=== PATIENT | male | born 1990 | race Caucasian/White ===

== ENCOUNTER 2021-09-28 03:59 | Emergency (ER) | payer OTHER, SELFPAY ==
[2021-09-28 04:06] VITALS: BP 131/78; PULSE 85; RESP 16; TEMP 36.7; O2SAT 96; BMI 27.8
--- NOTE | 2021-09-28 04:11 | ED_ITS ---
HPI - Back Pain/Injury General: Chief Complaint: Back Pain/Injury Stated Complaint: R flank pain Time Seen by Provider: 09/28/21 04:01 Source: patient Mode of arrival: ambulatory Limitations: no limitations History of Present Illness: HPI Narrative: 31-year-old male states that roughly an hour ago he woke up with sudden onset of right flank pain severe in nature. States originally it was a 9 out of 10 had vomiting from the pain he states pain is improved currently is now 5 out of 10. He denies any worsening improving factors. Has had no diarrhea he states he had a kidney stone 7 years ago and this feels similar denies any blood in his urine denies any testicle pain denies any dysuria. Associated symptoms: Deny abdominal pain, chills, fever(s), nausea or vomiting Review of Systems Const: Denies: fever(s), chills, body aches or change in appetite Eyes: Denies: blurry vision or eye discomfort ENMT: Denies: throat pain or dental pain Card: Denies: chest pain Resp: Denies: dyspnea GI: Denies: abdominal pain, nausea, vomiting or diarrhea : Reports: flank pain Musc: Denies: neck pain or back pain Skin/Breast: Denies: rash Neuro: Denies: headache(s) Psych: Denies: depression Roel/Lymph: Denies: easy bruising All/Imm: Denies: urticaria PFSH ED PFSH: Medical History Obesity (BMI 30.0-34.9) Surgical History History of inguinal hernia repair History of knee surgery History of shoulder surgery Social History Smoking and tobacco status: never smoked Alcohol intake: never Physical Exam Const: COMMON NORMALS: no acute distress, patient oriented x3 and healthy appearing HENMT: COMMON NORMALS: normocephalic and atraumatic HEAD & SCALP: normocephalic and atraumatic Eye: COMMON NORMALS: Equal, round and reactive pupils present and EOMs intact bilaterally PUPIL: Yes Equal, round and reactive pupils present Neck/C-Spine: COMMON NORMALS: full ROM and supple Chest: COMMONS NORMALS: normal inspection of the chest and normal palpation of entire chest wall Resp: COMMON NORMALS: normal respiratory effort, No retractions, No use of accessory muscles and clear to auscultation bilaterally AUSCULTATION: clear to auscultation bilaterally Cardio: COMMON NORMALS: regular rate, regular rhythm and No murmurs present (Cardio) RATE: regular rate RHYTHM: regular rhythm GI: COMMON NORMALS: Normal to inspection, nondistended, normoactive bowel sounds present, Soft to palpation, non-tender and no masses PALPATION: Yes Soft to palpation Extremity: COMMON NORMALS: normal to inspection and full ROM Neuro: COMMON NORMALS: patient oriented x3, moves all extremities and no focal motor deficits Psych: COMMON NORMALS: mental status grossly normal, Normal thought process present and cooperative THOUGHT PROCESS: Normal thought process present Skin: COMMON NORMALS: no rashes or lesions noted and no wounds GENERAL SKIN EXAM: no rashes or lesions noted Course Vital Signs: Vital signs: Vital Signs Temperature 98.0 F 09/28/21 04:06 Pulse Rate 85 09/28/21 04:06 Respiratory Rate 16 09/28/21 04:06 Blood Pressure 131/78 09/28/21 04:06 Pulse Oximetry 96 09/28/21 04:06 MDM - Back Pain/Injury MDM Narrative: Medical decision making narrative: Patient presents with flank pain from his kidney stone CT showed kidney stone likely the bladder pain here is actually all resolved to Shannan was actually passed in the bladder any has no vomiting here no fever he is stable for discharge he is to strain his urine follow-up with [facility]. Imaging Data^: CT Abd/Pel: Attestation: I personally reviewed and interpreted this imaging study as follows: Radiologist's impression: [address] [address] [address] Scan Report Signed Patient: Heath Rodriguez Unit #: [id number] : 1990 Age/Sex: 31 / M ADM Date: 09/28/21 Loc: ER Room/Bed: Attending Dr: Ordering Provider/Ordering MD: Harley Arechiga MD Date of Service: 09/28/21 Procedure(s): CT kidney stone 50259 Accession Number(s): [id number] Report Number: [id number] PROCEDURE INFORMATION: Exam: CT Abdomen And Pelvis Without Contrast Exam date and time: 09/28/2021 4:11 AM Age: 31 years old Clinical indication: Abdominal pain; Right; Prior surgery; Surgery type: Inguinal hernia repair x 2; Patient HX: RT flank pain. ; Additional info: Abd pain TECHNIQUE: Imaging protocol: Computed tomography of the abdomen and pelvis without contrast. Radiation optimization: All CT scans at this facility use at least one of these dose optimization techniques: automated exposure control; mA and/or kV adjustment per patient size (includes targeted exams where dose is matched to clinical indication); or iterative reconstruction. COMPARISON: CT Abdomen/Pelvis Renal [id number] 09/19/2017 3:24 PM RADIATION DOSE METRICS: Total DLP (mGy-cm): 1153.02 FINDINGS: Liver: Focal fatty change in liver is suggested along falciform ligament. Gallbladder and bile ducts: Normal. No calcified stones. No ductal dilation. Pancreas: Normal. No ductal dilation. Spleen: Normal. No splenomegaly. Adrenal glands: Normal. No mass. Kidneys and ureters: See Urinary bladder finding. Stomach and bowel: Unremarkable. No obstruction. No mucosal thickening. Appendix: No evidence of appendicitis. Intraperitoneal space: Unremarkable. No free air. No significant fluid collection. Vasculature: Unremarkable. No abdominal aortic aneurysm. Lymph nodes: Unremarkable. No enlarged lymph nodes. Urinary bladder: Calculus measuring 3 mm in greatest dimension is suggested at the posterior urinary bladder on the left in close proximity to the left ureterovesical junction. No findings of ureteral dilation or hydronephrosis. Reproductive: Unremarkable as visualized. Bones/joints: No acute fracture. Soft tissues: There are findings suggesting bilateral inguinal hernia repair. CT/CT kidney stone [id number] IMPRESSION: Calculus measuring 3 mm in greatest dimension is suggested at the posterior urinary bladder on the left in close proximity to the left ureterovesical junction. Calculus could either represent nonobstructing calculus at the ureterovesical junction or calculus free within the urinary bladder. Otherwise, no acute findings. Dictated By: Albaro Forbes MD Signed By: Albaro Forbes MD Signed Date/Time: 09/28/21 0510 DD/ 0 Discharge Plan Discharge Patient Disposition: Home Clinical Impression: Kidney stone Condition: Stable Prescriptions: New hydrocodone-acetaminophen 5-325 mg tablet 1 tab PO Q6H PRN (Reason: pain) Qty: 14 RF: 0 ondansetron 4 mg tablet,disintegrating 4 mg PO Q6H PRN (Reason: nausea and vomiting) Qty: 14 RF: 0 No Action ketoconazole 2 % cream 1 applic topical BID Qty: 60 RF: 3 fluconazole 100 mg tablet 200 mg PO ONCE Qty: 4 RF: 0 fexofenadine [Dana Allergy] 180 mg tablet 180 mg PO DAILY RF: 0 montelukast 10 mg tablet 10 mg PO DAILY Qty: 30 RF: 5 Discharge Orders: Discharge ED (Routine); Ordered 09/28/21 Ordered By: Harley Arechiga Referrals: Jasen Fontaine MD [Physician] - 1-3 days Discharge Diet: Advance as tolerated Discharge Activity: Resume usual activity Patient Instructions: Kidney Stones (ED), Opioid Safety Coding Level of Care Code ED [employer] for Brisa Fwd Exam Comprehensive
[2021-09-28] MEDS: sodium chloride 0.9% 1,000 ML 999 ML IV (04:43)
[2021-09-28] MEDS: ondansetron 2 mg/ML SDV 2 mL 4 MG IVP (04:43)
[2021-09-28] MEDS: morphine 4 mg/mL SDV 1 mL IVP (04:43)
[2021-09-28 05:24] LABS: Add Urine Microscopic? YES; Bilirubin Urine Neg (Negative); Blood Urine 3+ (Negative); Glucose Urine UA Norm (Normal); Ketones Urine 2+ (Negative); Leukocyte Esterase Urine Negative (Negative); Nitrate Urine Negative (Negative); Protein Urine Neg (Negative); Urine Appearance Hazy (CLEAR); Urine Color Yellow (Yellow); Urobilinogen Urine Neg (Negative); pH Urine 5 (5-7)
[2021-09-28 05:26] LABS: Add Urine Culture? Yes; RBC Urine 40-50 /hpf (0-2); Squamous Epithelial Cell Urine RARE /hpf (0-5); WBC Urine RARE /hpf (0-5)
--- NOTE | 2021-09-28 10:44 | DCPLANNER ---
manager environmental had message to schedule a follow up appointment for patient with Dr. Fontaine. manager environmental emailed patients information to Tahir Arredondo and Julie at Dr. Cruz office. Patients information will be printed and reviewed. Clinic will call patient with appointment information.
--- NOTE | 2021-10-02 04:57 | DCPLANNER ---
Dr. Cruz contacted shoe caser stating that when clinic called patient to schedule follow up appointment, that patient cancelled the appointment. Patient stated that he did not want the appointment.
== END 2021-09-28 05:33 | disposition home or self-care (01) ==
PROVIDERS: Emergency Provider Emergency Medicine
DX: N20.0 Calculus of kidney (principal); Z87.442 Personal history of urinary calculi
CPT/HCPCS: 74176; 81001; 87086; 96361; 96374; 96375; 99283; J2270; J2405; J7030

== ENCOUNTER → 2023-01-10 15:12 | Outpatient (BNVA) | payer OTHER, SELFPAY | PROVIDERS: Visit Provider Nurse Practitioner | DX: S99.921A Unspecified injury of right foot, initial encounter (principal); W22.8XXA Striking against or struck by other objects, initial encounter | CPT/HCPCS: 73630 ==